=== PATIENT | male | born 1955 | race Caucasian/White ===

== ENCOUNTER 2024-08-11 09:03 | Outpatient (CLI) | payer MEDICARE, SELFPAY ==
--- NOTE | ~2024-08-11 | US_ITS ---
Limited Abdominal Sonogram: Real-time sonographic imaging of the right upper quadrant was performed. Clinical History: Unspecified abdominal findings Findings: The liver appears heterogeneous/echogenic, with no evidence of mass lesion or bile duct di latation. Main portal vein demonstrates normal direction of flow. The gallbladder is well distended, and demonstrates questionable tiny gallbladder wall polyps. The common bile duct measures 4 mm. The visualized pancreas, aorta, and IVC are unremarkable. Right kidney unremarkable, measuring 10 cm in l ength. Impression: Diffuse fatty infiltration of the liver, versus possibly other chronic liver disease. Correlate clini erich. Questionable tiny gallbladder wall polyps. Reviewed, dictated and finalized at location M. Impression: Diffuse fatty infiltration of the liver, versus possibly other chronic liver di sease. Correlate clinically. Questionable tiny gallbladder wall polyps.
== END 2024-08-11 09:04 | disposition home or self-care (01) ==
LOC: MICIMG 09:05
PROVIDERS: PCP Internal Medicine; Visit Provider Internal Medicine
DX: R89.9 Unspecified abnormal finding in specimens from other organs, systems and tissues (principal); K76.0 Fatty (change of) liver, not elsewhere classified
CPT/HCPCS: 76705